=== PATIENT | female | born 1985 | race Asian ===

== ENCOUNTER 2023-01-22 14:16 | Outpatient (REF) | payer OTHER, SELFPAY ==
[2023-01-27 00:29] LABS: HPV mRNA E6/E7 Not Detected (Not Detected)
== END 2023-01-22 14:17 | disposition home or self-care (01) ==
LOC: HO.LNP 14:16
PROVIDERS: PCP Internal Medicine; Visit Provider Advanced Practice Midwife
DX: Z01.419 Encounter for gynecological examination (general) (routine) without abnormal findings (principal); Z11.51 Encounter for screening for human papillomavirus (HPV); N92.0 Excessive and frequent menstruation with regular cycle
CPT/HCPCS: 87624; 88142